=== PATIENT | male | born 1980 | race American Indian/Alaskan Native ===

== ENCOUNTER 2016-12-21 14:55 | Emergency (ER) | payer SELFPAY ==
--- NOTE | 2016-12-21 20:02 | Emergency Department Report ---
ED General Adult HPI - General Chief complaint: Pain General Stated complaint: ACID REFLUX/INDIGESTION Time Seen by Provider: 12/21/16 19:37 Source: patient Mode of arrival: Ambulatory Limitations: No Limitations - History of Present Illness Initial comments: 36M PMH GERD, Smoker p/w c/o 1 month of heartburn sensation. States that he experiences it on a daily basis and that it makes his central chest feel uncomfortable due to burning sensation, non radiating, no arm involvement. Denies any associated shortness of breath or diaphoresis, states it typically occurs after meals or at night when he lays down flat. Denies any associated headache, SOB, palpitations. States he does get mildly nauseous with these episodes that last a few seconds but does not vomit. gets sour taste in back of throat with episodes. Pt speaking in full sentences, AAOX3, NAD. States he has not followed up with any doctors and has not had any medical attention in years. States this problem has been going on for months but worse in the last 1 month. Has been taking Prilosec with minimal relief of symptoms Onset/Timin -: month(s) Location: chest Radiation: non-radiation Quality: burning Consistency: intermittent Worsens with: eating Treatments Prior to Arrival: other (prilosec) - Related Data Previous Rx's Medication Instructions Recorded Last Taken Type Esomeprazole Magnesium [Nexium 20 mg PO QDAY #30 tablet. 12/21/16 Unknown Rx 24Hr] Famotidine [Pepcid] 20 mg PO BID PRN #60 tablet 12/21/16 Unknown Rx Allergies Allergy/AdvReac Type Severity Reaction Status Date / Time No Known Allergies Allergy Unverified 12/21/16 15:16 ED Review of Systems ROS: Stated complaint: ACID REFLUX/INDIGESTION Other details as noted in HPI Constitutional: denies: chills, fever Eyes: denies: eye pain, eye discharge, vision change ENT: denies: ear pain, throat pain Respiratory: denies: cough, shortness of breath, wheezing Cardiovascular: denies: chest pain, palpitations Endocrine: no symptoms reported Gastrointestinal: as per HPI. denies: abdominal pain, nausea, diarrhea Genitourinary: denies: urgency, dysuria Musculoskeletal: denies: back pain, joint swelling, arthralgia Skin: denies: rash, lesions Neurological: denies: headache, weakness, paresthesias Psychiatric: denies: anxiety, depression Hematological/Lymphatic: denies: easy bleeding, easy bruising ED Past Medical Hx - Past Medical History Previous Medical History?: Yes Hx GERD: Yes - Surgical History Past Surgical History?: No - Social History Smoking Status: Current Every Day Smoker Substance Use Type: Alcohol, Marijuana - Medications Home Medications: Home Medications Medication Instructions Recorded Confirmed Last Taken Type Esomeprazole Magnesium [Nexium 20 mg PO QDAY #30 tablet. 12/21/16 Unknown Rx 24Hr] Famotidine [Pepcid] 20 mg PO BID PRN #60 tablet 12/21/16 Unknown Rx ED Physical Exam - General Limitations: No Limitations General appearance: alert, in no apparent distress - Head Head exam: Present: atraumatic, normocephalic - Eye Eye exam: Present: normal appearance, PERRL, EOMI - ENT ENT exam: Present: mucous membranes moist - Neck Neck exam: Present: normal inspection - Respiratory Respiratory exam: Present: normal lung sounds bilaterally. Absent: respiratory distress - Cardiovascular Cardiovascular Exam: Present: regular rate, normal rhythm. Absent: systolic murmur, diastolic murmur, rubs, gallop - GI/Abdominal GI/Abdominal exam: Present: soft, normal bowel sounds - Rectal Rectal exam: Present: deferred - Extremities Exam Extremities exam: Present: normal inspection - Back Exam Back exam: Present: normal inspection - Neurological Exam Neurological exam: Present: alert, oriented X3, CN II-XII intact, normal gait - Psychiatric Psychiatric exam: Present: normal affect, normal mood - Skin Skin exam: Present: warm, dry, intact, normal color. Absent: rash ED Course Vital Signs 12/21/16 12/21/16 15:16 20:35 Temperature 98.1 F Pulse Rate 76 68 Respiratory 20 20 Rate Blood Pressure 150/86 Blood Pressure 143/95 [Left] O2 Sat by Pulse 99 98 Oximetry ED Medical Decision Making - Lab Data Result diagrams: 12/21/16 19:50 12/21/16 19:50 - Medical Decision Making A/P: Esophagitis, GERD, acid reflux 1- HEART Score 1 points Low Score (0-3 points) Risk of MACE of 0.9-1.7%. 2- patient states she has been taking Prilosec with minimal relief will give patient trial of Nexium and Pepcid 3- pt referred to PMD, GI and outpt cards. i empahized importance of f/u to the pt. 4-based on pts history and quality of symptoms, primarily burning sensation after eating likely GERD/esophagitis, has been experiencing symptoms for more than 1 month intermittently Critical care attestation.: If time is entered above; I have spent that time in minutes in the direct care of this critically ill patient, excluding procedure time. ED Disposition Clinical Impression: Chronic GERD Disposition: TO HOME OR SELFCARE Is pt being admited?: No Does the pt Need Aspirin: No Condition: Stable Instructions: Diet for Ulcers and Gastritis (ED), Gastroesophageal Reflux Disease (ED) Prescriptions: Esomeprazole Magnesium [Nexium 24Hr] 20 mg PO QDAY #30 tablet. Famotidine [Pepcid] 20 mg PO BID PRN #60 tablet PRN Reason: Indigestion Referrals: PRIMARY MD KRISS [Primary Care Provider] - 3-5 Days [facility] [Outside] - 3-5 Days [facility] [Provider Group] - 3-5 Days ELIDA FONSECA MD [Staff Physician] - 3-5 Days Forms: Work/School Release Form(ED) Time of Disposition: 21:14
[2016-12-21 20:03] LABS: Basophils % (Auto) 1.1 % (0.0-1.8); Eosinophils % (Auto) 0.9 % (0.0-4.3); Hematocrit 46.8 % (35.5-45.6); Hemoglobin 15.6 gm/dl (11.8-15.2); Mean Corpuscular HGB Conc 33 % (32-34); Mean Corpuscular Hemoglobin 32 pg (28-32); Mean Corpuscular Volume 94 fl (84-94); Platelet Count 289 K/mm3 (140-440); Red Blood Count 4.96 M/mm3 (3.65-5.03); White Blood Count 12.4 K/mm3 (4.5-11.0)
--- NOTE | 2016-12-21 20:06 | XRay Report ---
FINAL REPORT EXAM: XR CHEST ROUTINE 2V HISTORY: chest pain TECHNIQUE: PA and lateral views of the chest PRIORS: None. FINDINGS: Lines, tubes, and devices: N/A Lungs and pleura: Trachea is normal in position. Lungs are clear of infiltrate, pleural effusion, vascular congestion, or pneumothorax. Cardiomediastinal silhouette: Cardiac and mediastinal silhouettes are unremarkable. Other: Bony structures are intact. IMPRESSION: No acute cardiopulmonary process seen.
[2016-12-21 20:21] LABS: Carbon Dioxide 27 mmol/L (22-30)
[2016-12-21 20:22] LABS: Albumin 5.1 g/dL (3.9-5); Albumin/Globulin Ratio 1.5 %; Anion Gap 17 mmol/L; BUN/Creatinine Ratio 12.72; Bilirubin,Direct 0.2 mg/dL (0-0.2); Bilirubin,Indirect 1.1 mg/dL; Bilirubin,Total 1.3 mg/dL (0.1-1.2); Blood Urea Nitrogen 14 mg/dL (9-20); Calcium 9.6 mg/dL (8.4-10.2); Chloride 94.7 mmol/L (98-107); Glucose 80 mg/dL (75-100); Potassium 3.8 mmol/L (3.6-5.0); Sodium 135 mmol/L (137-145); Total Protein 8.6 g/dL (6.3-8.2)
[2016-12-21 20:37] VITALS: BP 143/95
== END 2016-12-21 21:37 | disposition home or self-care (01) ==
LOC: ED 14:55
DX: K21.9 Gastro-esophageal reflux disease without esophagitis (principal); F17.200 Nicotine dependence, unspecified, uncomplicated; F12.90 Cannabis use, unspecified, uncomplicated
CPT/HCPCS: 36415; 71020; 80048; 80074; 82550; 83690; 84484; 85025; 93005; 93010; 99284

== ENCOUNTER 2018-04-19 17:05 | Emergency (ER) | payer SELFPAY ==
[2018-04-19 17:19] VITALS: BP 149/83
[2018-04-19 21:16] LABS: Bacteria,Urine 1+ /HPF (Negative); Bilirubin,Urine NEG (Negative); Blood,Urine MOD (Negative); Color,Urine Yellow (Yellow); Mucus,Urine 1+ /HPF; Urobilinogen,Urine < 2.0 mg/dL (<2.0)
== END 2018-04-19 21:21 | disposition left against medical advice (07) ==
LOC: ED 17:05
DX: R04.2 Hemoptysis (principal); Z53.21 Procedure and treatment not carried out due to patient leaving prior to being seen by health care provider
CPT/HCPCS: 81001